=== PATIENT | male | born 1995 | race Caucasian/White ===

== ENCOUNTER → 2017-07-28 | Outpatient (CLI) | payer OTHER | LOC: COL.RAD 08:36 | DX: R10.11 Right upper quadrant pain (principal) | CPT/HCPCS: A9537 ==

== ENCOUNTER 2019-01-03 14:50 | Emergency (ER) | payer OTHER ==
[~2019-01-03] VITALS: Ht 175.3 cm; Wt 78.6 kg
[2019-01-03 14:53] VITALS: TEMP 97.7
[2019-01-03] MEDS ORDERED: VYVANSE30 MG PO (15:23)
[2019-01-03 15:56] LABS: BASO % 0.3 % (0.0-2.0); EOS % 0.1 % (0-4.0); GRAN # 5.6 (1.4-6.5); GRAN % 75.9 % (42.2-75.2); HEMATOCRIT 49.7 % (42.0-52.0); HEMOGLOBIN 17.5 g/dl (13.5-18.0); LYMPH # 0.9 (1.2-3.4); LYMPH % 12.7 % (20.0-51.0); MEAN CELL VOLUME 85 fl (80.0-100.0); MEAN CORPUSCULAR HEMOGLOBIN 30 pg (27.0-31.0); MEAN CORPUSCULAR HGB CONC 35 g/dl (33.0-37.0); MEAN PLATELET VOLUME 9.4 fl (7.4-10.4); MONO # 0.8 (0.1-0.6); MONO % 10.9 % (1.7-9.3); PLATELET COUNT 249 K/mm3 (130-400); RED BLOOD COUNT 5.85 M/mm3 (4.20-5.60); REDCELL DISTRIBUTION WIDTH-CV 12.3 % (11.5-14.5)
[2019-01-03 16:07] LABS: ALBUMIN 4.8 gm/dL (3.5-5.0); BILIRUBIN,TOTAL 0.7 mg/dL (0.0-1.0); C-REACTIVE PROTEIN 7.3 mg/dL (0.0-0.9); CALCIUM 9.6 mg/dL (8.4-10.2); CREATININE, serum 1.16 mg/dL (0.66-1.25); POTASSIUM 3.6 mmol/L (3.4-5.0); TOTAL PROTEIN 8.6 gm/dL (6.4-8.2)
[2019-01-03] MEDS ORDERED: FLAGYL500 MG PO (17:35)
[2019-01-03] MEDS ORDERED: CIPRO 500MG TA500 MG PO (17:35)
[2019-01-03 18:05] VITALS: BP 124/81; PULSE 105
== END 2019-01-03 18:01 | disposition home or self-care (01) ==
LOC: COL.ER 14:50
PROVIDERS: Emergency Medicine
DX: K52.9 Noninfective gastroenteritis and colitis, unspecified (principal); F17.210 Nicotine dependence, cigarettes, uncomplicated; Z90.89 Acquired absence of other organs; F90.9 Attention-deficit hyperactivity disorder, unspecified type
CPT/HCPCS: J2060; J2405; J7030; Q9967